=== PATIENT | female | born 1955 | race Caucasian/White ===

== ENCOUNTER → 2017-03-09 | Outpatient (CLI) | payer OTHER ==
--- NOTE | 2017-03-09 15:51 | RAD ---
DATE: 03/09/2017 EXAM: MAMMO [facility] SCREENING BILATERAL HISTORY: Screening mammography, previous right breast cancer COMPARISON: 03/06/2016 This study was interpreted with the benefit of Computerized Aided Detection (CAD). The breast parenchyma is heterogeneously dense, which could reduce sensitivity of mammography. Breast parenchyma level C. FINDINGS: 2-D mammograms were obtained bilaterally in CC and MLO projections. 3-D tomographic images were also obtained on the left. A breast implant is present on the right, unchanged in configuration. No new or enlarging breast densities are seen. Numerous benign type calcifications are present in the left. No suspicious microcalcifications have developed. IMPRESSION: Stable mammograms without evidence of malignancy. BI-RADS CATEGORY: 2 BENIGN FINDING(S) RECOMMENDED FOLLOW-UP: 12M 12 MONTH FOLLOW-UP PQRS compliance statement: Patient information was entered into a reminder system with a target due date for the next mammogram. Mammography is a sensitive method for finding small breast cancers, but it does not detect them all and is not a substitute for careful clinical examination. A negative mammogram does not negate a clinically suspicious finding and should not result in delay in biopsying a clinically suspicious abnormality. "Our facility is accredited by the [employer] Mammography [employer]."
== END | disposition home or self-care (01) ==
LOC: KCIC MAMMO 11:00
PROVIDERS: ATTEND Family Medicine
DX: Z12.31 Encounter for screening mammogram for malignant neoplasm of breast (principal); Z85.3 Personal history of malignant neoplasm of breast
CPT/HCPCS: 77063; G0202; 77067

== ENCOUNTER → 2018-05-06 | Outpatient (CLI) | payer OTHER ==
--- NOTE | 2018-05-06 12:47 | KCIC ---
EXAM: Bilateral digital screening mammogram with tomosynthesis. HISTORY: 62-year-old female with a history of right breast cancer, status post right mastectomy, presents for annual mammography. TECHNIQUE: Full-field digital craniocaudal and mediolateral oblique 2D and 3D tomosynthesis images of both breasts are obtained for evaluation. Computer aided detection with [employer] software version 9.3 was applied. COMPARISON: 03/09/2017 and 2015 BREAST PARENCHYMAL DENSITY: Level B - Scattered fibroglandular densities. FINDINGS: There are findings consistent with a right mastectomy and right breast implant reconstruction. There is no new suspicious mammographic finding within either breast. There are several benign calcifications and stable asymmetries within the left breast. IMPRESSION: BI-RADS Category 2: Benign finding(s). RECOMMENDATION: Annual mammography is recommended. If your mammogram demonstrates that you have dense breast tissue, which could hide abnormalities, and if you have other risk factors for breast cancer that have been identified, you might benefit from supplemental screening tests that may be suggested by your ordering physician. Dense breast tissue, in and of itself, is a relatively common condition. This information is not provided to cause undue concern, but rather to raise your awareness and to promote discussion with your physician regarding the presence of other risk factors, in addition to dense breast tissue. A report of your mammography results will be sent to you and your physician. You should contact your physician if you have any questions or concerns regarding this report. Mammography is a sensitive method for finding small breast cancers, but it does not detect them all and is not a substitute for careful clinical examination. A negative mammogram does not negate a clinically suspicious finding and should not result in delay in biopsying a clinically suspicious abnormality. PQRS compliance statement - Patient information was entered into a reminder system with a target due date for the next mammogram. "Our facility is accredited by the [employer] Mammography [employer]." Electronically signed by: Jeanette Choi MD (05/06/2018 12:43 PM) [id number]
== END | disposition home or self-care (01) ==
LOC: KCIC MAMMO 07:49
PROVIDERS: ATTEND Family Medicine
DX: Z12.31 Encounter for screening mammogram for malignant neoplasm of breast (principal); Z85.3 Personal history of malignant neoplasm of breast; Z90.11 Acquired absence of right breast and nipple
CPT/HCPCS: 77063; 77067

== ENCOUNTER → 2020-05-28 | Outpatient (CLI) | payer MEDICARE ==
--- NOTE | 2020-05-28 16:49 | KCIC ---
Bilateral digital screening mammograms and tomosynthesis Reason for examination: Routine screening.History of right mastectomy for malignancy 2002. Comparison is made to previous study dated May 06, 2019 and priors Routine and implant displaced CC and MLO digital views obtained. Interpretation was made with the benefit of CAD. The skin and nipples show no abnormalities. No abnormal axillary lymph nodes are seen. The breast parenchyma is heterogeneously dense. (Breast density: Category C.) There are no suspicious masses, suspicious calcifications or architectural distortion. Right breast reconstruction with flap and saline implant again demonstrated. Left breast demonstrates benign calcifications, stable. Left outer breast intramammary lymph node is stable, benign. On the left MLO tomosynthesis image 20 at the upper breast 5 cm from the nipple is a possible asymmetry with architectural distortion with no correlate on the CC view, overlapping glandular tissue is a secondary consideration. Impression: Possible left upper breast asymmetry with architectural distortion. Further evaluation with left diagnostic mammography with tomosynthesis including ML view and spot compression MLO view, and left breast sonography is advised. ?Your patient's mammogram demonstrates that she has dense breast tissue (breast density category C or D), which could hide abnormalities, and if she has other risk factors for breast cancer that have been identified, she might benefit from supplemental screening tests that may be suggested by you as her ordering physician. Dense breast tissue, in and of itself, is a relatively common condition. Therefore, this information is not provided to cause undue concern, but rather to raise your awareness and to promote discussion with your patient regarding the presence of other risk factors, in addition to dense breast tissue. Your patient's mammography results will be sent to her. BI-RAD Category 0: Incomplete examination. "Our facility is accredited by the [employer] Mammography [employer]." This patient's information has been entered into a reminder system for the patient to be notified with the results of her examination and a target date for the next mammogram. Electronically signed by: Tai Perdomo MD (05/28/2020 4:46 PM) [id number]
== END ==
LOC: KCIC MAMMO 13:13
PROVIDERS: ATTEND Family Medicine
DX: Z12.31 Encounter for screening mammogram for malignant neoplasm of breast (principal); Z90.11 Acquired absence of right breast and nipple
CPT/HCPCS: 77063; 77067

== ENCOUNTER → 2020-06-10 | Outpatient (CLI) | payer MEDICARE ==
--- NOTE | 2020-06-10 09:12 | RAD ---
EXAMINATION: MAMMO [facility] DIAG LT History: Reason: ABNORMAL MAMMOGRAM / Spl. Instructions: / History: COMPARISON/CORRELATION: 01/22/2015, 03/17/2016, 03/09/2017, 05/06/2018, 05/28/2020 Technique: Diagnostic left unilateral digital mammogram views were obtained. This includes mediolateral view of the left breast. Spot compression imaging in the MLO projection of the left upper breast was also performed. CAD was utilized. 3-D tomosynthesis images were acquired. Findings: Breast Tissue Density B : There are scattered areas of fibroglandular density. There are no dominant masses, suspicious microcalcifications, or architectural distortion. Benign calcifications are present. No suspicious finding upon spot compression imaging. IMPRESSION: No mammographic evidence of malignancy. Recommend routine screening. BI-RADS category 1: Negative. The images were reviewed with computer aided detection. Patient information is entered into the reminder system with a target due date for the next screening mammogram. Mammography is the most sensitive method for finding small breast cancers, but it does not detect them all and is not a substitute for careful clinical examination. A negative mammogram does not negate a clinically suspicious finding and should not result in delay in biopsying a clinically suspicious abnormality. "Our facility is accredited by the [employer] Mammography [employer] Electronically signed by: Carl Walker MD (06/10/2020 9:10 AM) [id number]
== END ==
LOC: MAMMO 07:48
PROVIDERS: ATTEND Family Medicine
DX: R92.8 Other abnormal and inconclusive findings on diagnostic imaging of breast (principal)
CPT/HCPCS: 77065; G0279; 77061